=== PATIENT | male | born 1945 | race Caucasian/White ===

== ENCOUNTER 2018-10-10 09:04 | Emergency (ER) | payer MEDICARE ==
[~2018-10-10] VITALS: Ht 170.2 cm; Wt 84.4 kg
[~2018-10-10 09:04] MED LIST: DOXAZOSIN MESYLA8 MG PO; FINASTERIDE5 MG PO; GEMFIBROZIL600 MG PO; GLIPIZIDE5 MG PO; LISINOPRIL30 MG PO; METOPROLOL SUCC50 MG PO; NITROFURANTOIN100 MG PO; PANTOPRAZOLE SO40 MG PO; SUCRALFATE1 GM PO; SULFAMETHOXAZO1 EAC1 PO; TAMSULOSIN HCL0.4 MG PO; ULTRACET TABLE1 EACH PO
[2018-10-10] MEDS ORDERED: ATORVASTATIN CA10 MG PO (09:32)
[2018-10-10] MEDS ORDERED: AREDS2 PO (09:32)
[2018-10-10] MEDS ORDERED: XARELTO 15 MG PO (09:32)
[2018-10-10] MEDS ORDERED: METOPROLOL TART25 MG PO (09:32)
[2018-10-10 09:36] LABS: BILIRUBIN,URINE NEGATIVE (NEGATIVE); CLARITY,URINE CLEAR (CLEAR); COLOR,URINE YELLOW (YELLOW); KETONES,URINE NEGATIVE (NEGATIVE); LEUKOCYTE ESTERASE ,URINE NEGATIVE (NEGATIVE); NITRITE,URINE NEGATIVE (NEGATIVE); PROTEIN,URINE DIPSTICK NEGATIVE (NEGATIVE); URINE UROBILINOGEN 0.2 mg/dL (0.2 - 1)
--- NOTE | 2018-10-10 09:39 | NUR ---
PATIENT IN FROM HOME WITH COMPLAINTS OF BEING UNABLE TO URINATE - STATES LAST TIME WAS SOME TIME YESTERDAY. BLADDER SCANNER SHOWED >500 CC IN BLADDER. 16 MOHAWK CATHETER INSERTED PER MD ORDER, APPROX 750 CC OF URINE RETURN OBTAINED IMMEDIATELY. SAMPLE OBTAINED AND SENT TO LAB
[2018-10-10 10:06] LABS: EPITHELIAL CELLS,URINE RARE /LPF
[2018-10-24] MEDS ORDERED: LEVAQUIN500 MG PO (07:19)
[2018-10-24] MEDS ORDERED: LOPRESSOR25 MG PO (07:43)
== END 2018-10-10 11:31 | disposition home or self-care (01) ==
LOC: ER 09:06
DX: R33.9 Retention of urine, unspecified (principal); N40.1 Benign prostatic hyperplasia with lower urinary tract symptoms; I10 Essential (primary) hypertension; E11.9 Type 2 diabetes mellitus without complications; I48.91 Unspecified atrial fibrillation; K21.9 Gastro-esophageal reflux disease without esophagitis
CPT/HCPCS: 51700; 81001; 87086; 99283

== ENCOUNTER 2018-10-19 02:16 | Inpatient (IN) | payer MEDICARE ==
[~2018-10-19] VITALS: Ht 170.2 cm; Wt 84.4 kg
[2018-10-19] VITALS (9 sets, daily range): BP systolic 113–147; BP diastolic 57–80
[~2018-10-19 02:16] MED LIST changes: +AREDS2 PO; +ATORVASTATIN CA10 MG PO; +METOPROLOL TART25 MG PO; +XARELTO 15 MG PO
[2018-10-19] MEDS ORDERED: ACETAMINOPHEN 1000 MG/100 ML IV STA (02:24)
[2018-10-19] MEDS ORDERED: SODIUM CHLORIDE 0.9% 1000ML 1,000 ML IV STA ×2 (02:24)
[2018-10-19] MEDS ORDERED: VANCOMYCIN 1GM/NS 250 ML 250 ML IV STA (02:24)
[2018-10-19] MEDS ORDERED: CEFEPIME HCL 1 GM VIAL IV STA (02:24)
[2018-10-19 02:37] LABS: BASOPHILS % 0.3 % (0.0-1.0); EOSINOPHILS # (AUTO) 0.2 (0.0-0.4); EOSINOPHILS % 2.9 % (0.0-6.0); HEMATOCRIT 37.7 % (38.2-49.6); HEMOGLOBIN 12.2 g/dL (14.0-18.0); LYMPHOCYTES # (AUTO) 0.6 (1.0-3.2); LYMPHOCYTES % 7.3 % (18.0-39.1); MEAN CORPUSCULAR HEMOGLOBIN 28.9 pg (28-32); MEAN CORPUSCULAR HGB CONC 32.4 g/dL (31-35); MEAN CORPUSCULAR VOLUME 89.3 fL (81-99); MONOCYTES # (AUTO) 0.2 (0.2-0.8); MONOCYTES % 2.3 % (4.4-11.3); NEUTROPHILS # (AUTO) 6.8 (2.1-6.9); NEUTROPHILS % 86.6 % (38.7-80.0); PLATELET COUNT 160 x10e3/uL (140-360); RED BLOOD COUNT 4.22 x10e6/uL (4.3-5.7); RED CELL DISTRIBUTION WIDTH 15.8 % (11.7-14.4)
[2018-10-19 02:58] LABS: ALBUMIN 3.6 g/dL (3.5-5.0); ALBUMIN/GLOBULIN RATIO 0.9 (0.8-2.0); ANION GAP 19.1 mmol/L (8-16); CALCIUM 9.2 mg/dL (8.4-10.2); CREATININE, SERUM 2.46 mg/dL (0.72-1.25)
[2018-10-19] MEDS: AZTREONAM 1 GM/NS 50 ML 50 ML IV SCH ×2 (02:58→14:26)
[2018-10-19] MEDS ORDERED: MEROPENEM 1GM 0 ML IV ONE (02:58)
--- NOTE | 2018-10-19 03:00 | NUR ---
irrigated ellison with 500cc ns using sterile technique. changed ellison bag to new sterile bag, placed to gravity, then obtained sample for UA from port after draining for approx 10 minutes. pt tolerated well. during eval and ellison irrigation, spouse relates she has been cleaning ellison bag internally each day by boiling water, disconnecting ellison bag tubing and then pouring down tubing. advised not pour water into tubing in the future. verbalized understanding.
[2018-10-19 03:01] LABS: BILIRUBIN,URINE NEGATIVE (NEGATIVE); CLARITY,URINE SL CLOUDY (CLEAR); COLOR,URINE RED (YELLOW); KETONES,URINE NEGATIVE (NEGATIVE); LEUKOCYTE ESTERASE ,URINE NEGATIVE (NEGATIVE); NITRITE,URINE NEGATIVE (NEGATIVE); PROTEIN,URINE DIPSTICK 2+ (NEGATIVE); URINE UROBILINOGEN 0.2 mg/dL (0.2 - 1)
[2018-10-19 03:02] LABS: POTASSIUM 5.1 mmol/L (3.5-5.1)
[2018-10-19 03:03] LABS: RBC,URINE >50 /HPF (0-5); WBC,URINE (MAN) 0-5 /HPF (0-5)
--- NOTE | 2018-10-19 03:45 | Diagnostic Imaging Report ---
Examination: Single AP view of the chest. COMPARISON: None. INDICATION: Sepsis DISCUSSION: Lines/tubes: None. Lungs: The lungs are well inflated and clear. No pneumonia or pulmonary edema. Pleura: No pleural effusion or pneumothorax. Heart and mediastinum: The heart and the mediastinum are unremarkable. Bones and soft tissues: Remote right-sided rib fractures. IMPRESSION: 1. No acute cardiopulmonary abnormalities. Signed by: Dr. Reese Wasserman M.D. on 10/19/2018 3:42 AM
[2018-10-19] MEDS ORDERED: FLOMAX0.4 MG PO (04:19)
[2018-10-19] MEDS ORDERED: GLIPIZIDE ER5 MG PO (04:19)
--- NOTE | 2018-10-19 05:19 | Diagnostic Imaging Report ---
EXAMINATION: CT of the abdomen and pelvis without contrast. TECHNIQUE: Helical CT images of the abdomen and pelvis were performed from the lung bases to the lesser trochanters. No intravenous contrast was given per renal stone protocol. Coronal and sagittal reformatted images were obtained.Dose modulation, iterative reconstruction, and/or weight based adjustment of the mA/kV was utilized to reduce the radiation dose to as low as reasonably achievable. COMPARISON: None. CLINICAL HISTORY:Fever, hematuria DISCUSSION: ABSENCE OF INTRAVENOUS CONTRAST DECREASES SENSITIVITY FOR DETECTION OF FOCAL LESIONS AND VASCULAR PATHOLOGY. ABDOMEN/PELVIS: LOWER THORAX: Unremarkable. HEPATOBILIARY:No focal hepatic lesions. No biliary ductal dilation. The gallbladder is normal. SPLEEN: No splenomegaly. PANCREAS: No focal masses or ductal dilatation. ADRENALS: No adrenal nodules. KIDNEYS/URETERS: Atrophy of the right kidney. Bilateral perinephric stranding. PELVIC ORGANS/BLADDER: The bladder is collapsed. Paula catheter. Prostate severely enlarged measuring 7.5 cm transverse dimension PERITONEUM/RETROPERITONEUM: No free air or fluid. LYMPH NODES: No intra-abdominal,retroperitoneal, pelvic or inguinal lymphadenopathy. VESSELS: Limited evaluation. GI TRACT: No distention or wall thickening. BONES AND SOFT TISSUES: No bony destructive lesions. No soft tissue abnormalities. IMPRESSION: No nephrolithiasis. Decompressed bladder with Paula catheter secondary to prostate hypertrophy. Signed by: Dr. Reese Wasserman M.D. on 10/19/2018 5:16 AM
--- OUTSIDE RECORDS SUMMARY | 2018-10-19 05:52 | XMS REPORT ---
[facility] Address Unknown Phone Unavailable Care Team Providers Care Management Trainee Marketing Name Role Phone Kayla GRUBBS Unavailable Unavailable Problems This patient has no known problems. Allergies, Adverse Reactions, Alerts This patient has no known allergies or adverse reactions. Medications This patient has no known medications. Results Test Description Test Time Test Comments Text Results Atomic Results Result Comments CT ABDOMEN/PELVIS WO 2018-10-19 05:13:00 [facility] [address] [place] [address] Patient Name: JOSEPHINE WYATT MR #: [id number] : 1945 Age/Sex: 73/M Req #: [id number] Adm Physician: Ordered by: HUNTER GRUBBS MD Report #: [id number] Location: ER Room/Bed: Procedure: [id number] CT/CT ABDOMEN/PELVIS WO Exam Date: 10/19/18 Exam Time: 0350 REPORT STATUS: Signed EXAMINATION: CT of the abdomen and pelvis without contrast. TECHNIQUE: Helical CT images of the abdomen and pelvis were performed from the lung bases to the lesser trochanters. No intravenous contrast was given per renal stone protocol. Coronal and sagittal reformatted images were obtained.Dose modulation, iterative reconstruction, and/or weight based adjustment of the mA/kV was utilized to reduce the radiation dose to as low as reasonably achievable. COMPARISON: None. CLINICAL HISTORY:Fever, hematuria DISCUSSION: ABSENCE OF INTRAVENOUS CONTRAST DECREASES SENSITIVITY FOR DETECTION OF FOCAL LESIONS AND VASCULAR PATHOLOGY. ABDOMEN/PELVIS: LOWER THORAX: Unremarkable. HEPATOBILIARY:No focal hepatic lesions. No biliary ductal dilation. The gallbladder is normal. SPLEEN: No splenomegaly. PANCREAS: No focal masses or ductal dilatation. ADRENALS: No adrenal nodules. KIDNEYS/URETERS: Atrophy of the right kidney. Bilateral perinephric stranding. PELVIC ORGANS/BLADDER: The bladder is collapsed. Paula catheter. Prostate severely enlarged measuring 7.5 cm transverse dimension PERITONEUM/RETROPERITONEUM: No free air or fluid. LYMPH NODES: No intra-abdominal,retroperitoneal, pelvic or inguinal lymphadenopathy. VESSELS: Limited evaluation. GI TRACT: No distention or wall thickening. BONES AND SOFT TISSUES: No bony destructive lesions. N o soft tissue abnormalities. IMPRESSION: No nephrolithiasis. Decompressed bladder with Paula catheter secondary to prostate hypertrophy. Signed by: Dr. Renetta Tolliver M.D. on 10/19/2018 5:16 AM Dictated By: RENETTA TOLLIVER MD 5 Transcribed By: HAILE on 10/19/18515 COPY TO: HUNTER GRUBBS MD CHEST SINGLE (PORTABLE) 2018-10-19 03:41:00 [place] [id number] Patient Name: JOSEPHINE WYATT MR #: [id number] : 1945 Age/Sex: 73/M Req #: [id number] Adm Physician: Ordered by: HUNTER GRUBBS MD Report #: [id number] Location: ER Room/Bed: Procedure: [id number] DX/CHEST SINGLE (PORTABLE) Exam Date: 10/19/18 Exam Time: 0248 REPORT STATUS: Signed Examination: Single AP view of the chest. COMPARISON: None. INDICATION: Sepsis DISCUSSION: Lines/tubes: None. Lungs: The lungs are well inflated and clear. No pneumonia or pulmonary edema. Pleura: No pleural effusion or pneumothorax. Heart and mediastinum: The heart and the mediastinum are unremarkable. Bones and soft tissues: Remote right-sided rib fractures. IMPRESSION: 1. No acute cardiopulmonary abnormalities. Signed by: Dr. Renetta Tolliver M.D. on 10/19/2018 3:42 AM Dictated By: RENETTA TOLLIVER MD 1 Transcribed By: HAILE on 10/19/18341 COPY TO: HUNTER GRUBBS MD
--- NOTE | 2018-10-19 07:05 | NUR ---
RCD PT AT BED PT IS ALERT AND ORIENTED PT RESTING ON BED NO SIGNS OF ANY DISTRESS NOTED IV PATENT MAURER DRAINING BY GRAVITY BLOODY URINE FAMILY AT BED SIDE BED LOW AND LOCKED CALL LIGHT IN REACH
--- NOTE | 2018-10-19 07:30 | NUR ---
refused blood sugar checking she said he is not diabetic
--- NOTE | 2018-10-19 10:00 | NUR ---
PAGED DR LINARES AND TALKED REGARDING RENEWAL OF HOME MEDS HE SAID HE COMING TO SEE THE PT AND RENEW THE MEDICATIONS
--- NOTE | 2018-10-19 13:44 | NUR ---
H&P cc: FEVER/CHILLS HPI: 73yoM, PCP , presented to ED on 10/10 for urinary retention, ellison placed and asked to f/u with urology outpt. Pt developed hematuria at home few days, then fever/chills, so came back; admitted. 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
[2018-10-19] MEDS: SODIUM CHLORIDE 0.9% 1000ML 1,000 ML IV SCH (13:45)
--- NOTE | 2018-10-19 14:30 | NUR ---
PAGED DR LINARES AND NOTIFY THE BLOOD CULTURE PRELIMINARY REPORT ASKED WHAT KIND OF ANTIBIOTIC GETTING OK HE WILL SEE THE PT
--- NOTE | 2018-10-19 14:57 | Consultation ---
DATE OF CONSULTATION: 10/19/2018 Urology consultation CHIEF COMPLAINT/REASON FOR CONSULTATION: Gross hematuria. HISTORY OF PRESENT ILLNESS: Mr. Garcia is a 73-year-old male, patient of Dr. Codie Ro, who has been noncompliant. The patient has not been seen for quite some time. He presented to the emergency room last week with urinary retention. Subsequent to Paula catheter placement, has had gross hematuria. PAST MEDICAL HISTORY: Atrial fibrillation, rapid ventricular response, BPH status post TURP, appendicitis status post appendectomy, hypertension, and chronic renal insufficiency. MEDICATIONS: Please see MAR. ALLERGIES: PENICILLIN, LISINOPRIL. SOCIAL HISTORY: Denied smoking or drinking. FAMILY HISTORY: Denied urologic stones or malignancies. REVIEW OF SYSTEMS: Noncontributory. Noncontributory other than problems mentioned above for 12 organ systems PHYSICAL EXAMINATION: GENERAL: An elderly male, lying currently, in no distress. VITAL SIGNS: Temperature 101.2, pulse 97, respirations 18, and blood pressure 119/57. HEENT: Sclerae anicteric. NECK: Supple. BACK: Without costovertebral angle. ABDOMEN: Soft, nontender, and nondistended. No palpable mass. No palpable hernias. No palpable adenopathy. : Normal male. Paula catheter draining bloody urine. EXTREMITIES: No edema. Moves extremities. PSYCH: Alert and appropriate. SKIN: Intact, normal color. PERTINENT LABORATORY DATA: Hemoglobin 12, hematocrit 37, platelet count 162,000, and white count 7850. Sodium 138, potassium 5.1, chloride 108, bicarb 16, BUN 35, creatinine 2.46, and glucose 110. Lactic acid 21. Urinalysis, greater than 50 red, 0-5 whites, 2+ protein. CT scan revealing right renal atrophy, 7.5 cm prostate. IMPRESSION: 1. Gross hematuria. 2. Acute on chronic renal failure. 3. Septic shock. 4. Urinary tract infection. 5. Benign prostatic hypertrophy. 6. Proteinuria. 7. Right renal atrophy. 8. Anemia. PLAN: Irrigate the Paula catheter p.r.n. Supportive care for the septic shock. Thank you for allowing me to participate in care of the patient. We will be happy to follow along with you. MD ZECHARIAH Summers/MODL /[id number] cc: Nitin Giordano MD
[2018-10-19] MEDS: METOPROLOL TARTRATE 25 MG TAB PO SCH ×2 (15:00→20:14)
[2018-10-19] MEDS: GEMFIBROZIL 600 MG TAB PO SCH (16:05)
[2018-10-19] MEDS: ACETAMINOPHEN 325 MG TAB PO PRN (16:19)
--- NOTE | 2018-10-19 18:39 | NUR ---
PT RESTING ON BED BED SIDE REPORT GIVEN TO ONCOMING NURSE
[2018-10-19] MEDS ORDERED: IBUPROFEN 600 MG TAB PO PRN (20:00)
[2018-10-19] MEDS: DOXAZOSIN MESYLATE 2 MG TAB PO SCH (20:14)
[2018-10-19] MEDS: ATORVASTATIN 10 MG TAB PO SCH (20:14)
[2018-10-20] VITALS (7 sets, daily range): BP systolic 112–158; BP diastolic 61–80
[2018-10-20] MEDS: AZTREONAM 1 GM/NS 50 ML 50 ML IV SCH ×2 (01:41→13:47)
[2018-10-20 05:49] LABS: BASOPHILS % 0.2 % (0.0-1.0); EOSINOPHILS % 0.1 % (0.0-6.0); HEMATOCRIT 34.7 % (38.2-49.6); HEMOGLOBIN 10.5 g/dL (14.0-18.0); LYMPHOCYTES # (AUTO) 0.3 (1.0-3.2); LYMPHOCYTES % 3.4 % (18.0-39.1); MEAN CORPUSCULAR HEMOGLOBIN 28.5 pg (28-32); MEAN CORPUSCULAR HGB CONC 30.3 g/dL (31-35); MEAN CORPUSCULAR VOLUME 94.3 fL (81-99); MONOCYTES # (AUTO) 0.4 (0.2-0.8); MONOCYTES % 3.7 % (4.4-11.3); NEUTROPHILS # (AUTO) 8.9 (2.1-6.9); PLATELET COUNT 109 x10e3/uL (140-360); RED BLOOD COUNT 3.68 x10e6/uL (4.3-5.7); RED CELL DISTRIBUTION WIDTH 16.4 % (11.7-14.4)
[2018-10-20 06:13] LABS: ALBUMIN 2.8 g/dL (3.5-5.0); ALBUMIN/GLOBULIN RATIO 0.8 (0.8-2.0); CALCIUM 8.4 mg/dL (8.4-10.2); CREATININE, SERUM 2.39 mg/dL (0.72-1.25)
--- NOTE | 2018-10-20 08:05 | NUR ---
IM- progress note O/N no events ROS: no N/V/D/KRAFT/cp/sob/skin rash/vision changes/back pain/leg pain v/s revd PE tired appearing anicteric ns1s2 mod bs soft nt nd ellison with bloody urine no e skin dry n. 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
[2018-10-20] MEDS: TAMSULOSIN HCL 0.4 MG CAP PO SCH (08:28)
[2018-10-20] MEDS: GEMFIBROZIL 600 MG TAB PO SCH ×2 (08:28→15:51)
[2018-10-20] MEDS: PANTOPRAZOLE SOD 40 MG TABEC PO SCH (08:29)
[2018-10-20] MEDS: METOPROLOL TARTRATE 25 MG TAB PO SCH ×3 (08:29→21:50)
[2018-10-20] MEDS: SODIUM CHLORIDE 0.9% 1000ML 1,000 ML IV SCH (11:10)
[2018-10-20] MEDS: ACETAMINOPHEN 325 MG TAB PO PRN ×2 (11:20→23:16)
--- NOTE | 2018-10-20 16:23 | NUR ---
O aware of noon T101.5. No new orders at this time.
--- NOTE | 2018-10-20 18:49 | NUR ---
Resting in bed, side rails upx2, call light within reach. NO s/s of acute distress noted. Report to be given to oncoming nurse.
--- NOTE | 2018-10-20 18:53 | NUR ---
Received report from previous nurse. Call light within reach. Patient in bed.
[2018-10-20] MEDS: DOXAZOSIN MESYLATE 2 MG TAB PO SCH (21:50)
[2018-10-20] MEDS: ATORVASTATIN 10 MG TAB PO SCH (21:50)
[2018-10-21] VITALS (8 sets, daily range): BP systolic 122–162; BP diastolic 71–94
--- NOTE | 2018-10-21 00:20 | NUR ---
Helped patient get out of bed and when he got back into bed, he started wheezing. Called and talked to Dr. Herrera, he said to start Neb treatment q4h PRN.
[2018-10-21] MEDS: ALBUTEROL/IPRATROPIUM 3 ML NEB NEB PRN ×3 (01:30→23:45)
[2018-10-21] MEDS: AZTREONAM 1 GM/NS 50 ML 50 ML IV SCH (02:35)
--- NOTE | 2018-10-21 06:46 | NUR ---
IM- progress note O/N no events ROS: no N/V/D/KRAFT/cp/sob/skin rash/vision changes/back pain/leg pain v/s revd PE tired appearing anicteric ns1s2 mod bs soft nt nd ellison with bloody urine no e skin dry n. 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 Edward Herrera MD,PhD.
--- NOTE | 2018-10-21 07:00 | NUR ---
aware of blood culture and urine culture results
--- NOTE | 2018-10-21 07:14 | NUR ---
Gave report to oncoming nurse. Call light within reach. Patient in bed.
[2018-10-21 07:57] LABS: ANION GAP 13.8 mmol/L (8-16); CALCIUM 9.1 mg/dL (8.4-10.2); CREATININE, SERUM 2.34 mg/dL (0.72-1.25); POTASSIUM 4.8 mmol/L (3.5-5.1)
[2018-10-21] MEDS: PANTOPRAZOLE SOD 40 MG TABEC PO SCH (08:04)
[2018-10-21] MEDS: GEMFIBROZIL 600 MG TAB PO SCH ×2 (08:04→16:49)
[2018-10-21] MEDS: TAMSULOSIN HCL 0.4 MG CAP PO SCH (08:04)
[2018-10-21] MEDS: METOPROLOL TARTRATE 25 MG TAB PO SCH ×3 (08:04→22:21)
[2018-10-21] MEDS: LEVOFLOXACIN 500MG/D5W 100ML 100 ML IV SCH (08:04)
[2018-10-21] MEDS: SODIUM CHLORIDE 0.9% 1000ML 1,000 ML IV SCH (08:04)
[2018-10-21] MEDS: ACETAMINOPHEN 325 MG TAB PO PRN (08:05)
--- NOTE | 2018-10-21 18:53 | NUR ---
Received report from previous nurse. call light within reach. patient in bed. at bedside
--- NOTE | 2018-10-21 19:10 | NUR ---
Report given to oncoming nurse of patient's status. Resting in bed. No s/s of acute distress noted. at bedside
[2018-10-21] MEDS: DOXAZOSIN MESYLATE 2 MG TAB PO SCH (22:21)
[2018-10-21] MEDS: ATORVASTATIN 10 MG TAB PO SCH (22:21)
[2018-10-22] VITALS (8 sets, daily range): BP systolic 153–175; BP diastolic 77–88
[2018-10-22] MEDS: SODIUM CHLORIDE 0.9% 1000ML 1,000 ML IV SCH ×3 (03:45→20:17)
--- NOTE | 2018-10-22 07:00 | NUR ---
BEDSIDE SHIFT REPORT RECEIVED FROM THE SERVER PROGRAMMER RN. FAMILY AT BEDSIDE. PT DENIES NEEDS AT THIS TIME.
--- NOTE | 2018-10-22 07:20 | NUR ---
Gave report to oncoming nurse. Patient in bed. Call light within reach. at bedside
--- NOTE | 2018-10-22 07:59 | NUR ---
IM- progress note O/N no events ROS: no N/V/D/KRAFT/cp/sob/skin rash/vision changes/back pain/leg pain v/s revd PE tired appearing anicteric ns1s2 mod bs soft nt nd ellison with bloody urine no e skin dry n. 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 10/22 repeat blood cultures today. Edward Herrera MD,PhD.
[2018-10-22] MEDS: LEVOFLOXACIN 500MG/D5W 100ML 100 ML IV SCH (08:08)
[2018-10-22] MEDS: PANTOPRAZOLE SOD 40 MG TABEC PO SCH (08:08)
[2018-10-22] MEDS: METOPROLOL TARTRATE 25 MG TAB PO SCH ×3 (08:13→20:26)
[2018-10-22] MEDS: TAMSULOSIN HCL 0.4 MG CAP PO SCH (08:15)
[2018-10-22] MEDS: GEMFIBROZIL 600 MG TAB PO SCH ×2 (08:16→16:06)
--- NOTE | 2018-10-22 13:15 | NUR ---
MAURER CARE EDUCATION GIVEN TO THE PT. PT FAMILY AT BEDSIDE. EDUCATION MATERIAL GIVEN TO THE PT FAMILY. DEMONSTRATED THE PROCEDURE. VERBALIZED UNDERSTANDING.
--- NOTE | 2018-10-22 19:00 | NUR ---
BEDSIDE SHIFT REPORT GIVEN TO THE SURFACE WATER TECHNICIAN RN. PT DENIED FURTHER NEEDS.
[2018-10-22] MEDS: ATORVASTATIN 10 MG TAB PO SCH (20:26)
[2018-10-22] MEDS: DOXAZOSIN MESYLATE 2 MG TAB PO SCH (20:26)
[2018-10-23] VITALS (7 sets, daily range): BP systolic 147–163; BP diastolic 72–87
--- NOTE | 2018-10-23 06:09 | NUR ---
IM- progress note O/N no events ROS: no N/V/D/KRAFT/cp/sob/skin rash/vision changes/back pain/leg pain v/s revd PE tired appearing anicteric ns1s2 mod bs soft nt nd ellison with bloody urine no e skin dry n. 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 10/22 repeat blood cultures today. 10/23 f/u blood cx. Pt may have CKD3/4. Edward Herrera MD,PhD.
--- NOTE | 2018-10-23 07:00 | NUR ---
BEDSIDE REPORT FROM NIGHT RN. PT DENIES NEEDS AT THIS TIME.
[2018-10-23] MEDS: GEMFIBROZIL 600 MG TAB PO SCH ×2 (08:19→17:33)
[2018-10-23] MEDS: TAMSULOSIN HCL 0.4 MG CAP PO SCH (08:19)
[2018-10-23] MEDS: METOPROLOL TARTRATE 25 MG TAB PO SCH ×3 (08:19→22:12)
[2018-10-23] MEDS: PANTOPRAZOLE SOD 40 MG TABEC PO SCH (08:19)
[2018-10-23] MEDS: LEVOFLOXACIN 500MG/D5W 100ML 100 ML IV SCH (08:19)
[2018-10-23] MEDS: SODIUM CHLORIDE 0.9% 1000ML 1,000 ML IV SCH (13:35)
[2018-10-23] MEDS: DOXAZOSIN MESYLATE 2 MG TAB PO SCH (22:12)
[2018-10-23] MEDS: ATORVASTATIN 10 MG TAB PO SCH (22:12)
--- NOTE | 2018-10-24 01:46 | NUR ---
Dr. Javier baker for elevated bp
[2018-10-24 02:07] VITALS: BP 185/87
[2018-10-24 05:30] VITALS: BP 162/88
[2018-10-24] MEDS ORDERED: LABETALOL HCL 5 MG/ML 20ML VIAL IV PRN (06:45)
--- NOTE | 2018-10-24 07:18 | NUR ---
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 10/22 repeat blood cultures today. 10/23 f/u blood cx. Pt may have CKD3/4. repeat blood cx negative d/c home f/u pcp 1 week d/c.35mins stable Edward Herrera MD,PhD.
[2018-10-24] MEDS ORDERED: LEVAQUIN500 MG PO (07:19)
--- NOTE | 2018-10-24 07:20 | NUR ---
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 10/22 repeat blood cultures today. 10/23 f/u blood cx. Pt may have CKD3/4. repeat blood cx negative d/c home f/u pcp 1 week and Urology 1 week; Home on levaquin for 11 more days; d/c.35mins stable Edward Herrera MD,PhD.
--- NOTE | 2018-10-24 07:26 | NUR ---
Patient endorsed to next shift for continuity of care.
[2018-10-24] MEDS ORDERED: LOPRESSOR25 MG PO (07:43)
--- NOTE | 2018-10-24 07:44 | NUR ---
IMM letter delivered and explained to pt and at bedside. They verbalized understanding. Pt's Ivelisse Garcia signed letter. Signed copy placed in chart. Copy to pt's .
[2018-10-24 08:00] VITALS: BP 149/85
--- NOTE | 2018-10-24 08:00 | NUR ---
Pt received in bed at this time. Pt is able to verbalize needs. Denies any pain at this time. Paula in place and draining light yellow urine. Family at the bedside.
[2018-10-24 08:03] VITALS: BP 149/85
[2018-10-24] MEDS ORDERED: METOPROLOL TARTRATE 25 MG TAB PO SCH (09:00)
[2018-10-24] MEDS: TAMSULOSIN HCL 0.4 MG CAP PO SCH (09:26)
[2018-10-24] MEDS: LEVOFLOXACIN 500MG/D5W 100ML 100 ML IV SCH (09:26)
[2018-10-24] MEDS: GEMFIBROZIL 600 MG TAB PO SCH (09:26)
[2018-10-24] MEDS: PANTOPRAZOLE SOD 40 MG TABEC PO SCH (09:26)
[2018-10-24 11:46] VITALS: BP 159/98
--- NOTE | 2018-10-24 12:38 | NUR ---
CM SPOKE TO PATIENT AND PATIENT AT BEDSIDE REGARDING ROLLING WALKER FOR DISCHARGE. PATIENT IN BATHROOM AND DELEGATES HIS TO SIGN DURAMEDIC FORM. DURAMEDIC FORM SIGNED BY PATIENT AND WALKER SET UP AND PLACED AT BEDSIDE. PATIENT CLEARED BY CM AND READY FOR DC. DURAMEDIC FORM SIGNED BY AND STAPLED TO FACESHEET AND ORDER. FORM PENDING SIGNATURE BY MD. FORM PLACED ON CHART.
--- NOTE | 2018-10-24 12:50 | NUR ---
Pt discharged at this time. Prescriptions given to . Education given regarding leg bag and pt and verbalize understanding of how leg bag works. Pt went home with walker. Denies any pain at this time.
== END 2018-10-24 12:50 | disposition home or self-care (01) | DRG 872 ==
LOC: ER 02:16 → ERHOLD 05:49 → MED/SURG2 06:05
PROVIDERS: ADMIT Internal Medicine; ATTEND Internal Medicine
DX: A41.9 Sepsis, unspecified organism (principal); N39.0 Urinary tract infection, site not specified; E87.2 Acidosis; R31.9 Hematuria, unspecified; N40.1 Benign prostatic hyperplasia with lower urinary tract symptoms; R33.8 Other retention of urine; Z87.891 Personal history of nicotine dependence; E11.22 Type 2 diabetes mellitus with diabetic chronic kidney disease; I12.9 Hypertensive chronic kidney disease with stage 1 through stage 4 chronic kidney disease, or unspecified chronic kidney disease; N18.2 Chronic kidney disease, stage 2 (mild); Z79.4 Long term (current) use of insulin; I48.0 Paroxysmal atrial fibrillation; Z79.01 Long term (current) use of anticoagulants
CPT/HCPCS: 36415; 71045; 74176; 80048; 80053; 80061; 81001; 82948; 83036; 83605; 85025; 87040; 87071; 87086; 87186; 87205; 93005; 94640; 96365; 99284; J0692; J1956; J3370; J7030

== ENCOUNTER 2021-07-06 14:33 | Emergency (ER) | payer MEDICARE, OTHER ==
[~2021-07-06] VITALS: Ht 170.2 cm; Wt 75.3 kg
[~2021-07-06 14:33] MED LIST changes: +FLOMAX0.4 MG PO; +GLIPIZIDE ER5 MG PO; +LEVAQUIN500 MG PO; +LOPRESSOR25 MG PO
[2021-07-06] MEDS ORDERED: ACETAMINOPHEN 325 MG TAB PO ONE (15:00)
[2021-07-06] MEDS ORDERED: METHOCARBAMOL 750 MG TAB PO ONE (15:00)
[2021-07-06] MEDS ORDERED: METHOCARBAMOL750 MG PO (16:51)
== END 2021-07-06 17:13 | disposition home or self-care (01) ==
LOC: ER 14:56
DX: S32.010A Wedge compression fracture of first lumbar vertebra, initial encounter for closed fracture (principal); W01.0XXA Fall on same level from slipping, tripping and stumbling without subsequent striking against object, initial encounter; Y93.01 Activity, walking, marching and hiking; Y92.098 Other place in other non-institutional residence as the place of occurrence of the external cause; I10 Essential (primary) hypertension; E11.9 Type 2 diabetes mellitus without complications; E78.5 Hyperlipidemia, unspecified; I48.91 Unspecified atrial fibrillation; K21.9 Gastro-esophageal reflux disease without esophagitis
CPT/HCPCS: 72110; 99282

== ENCOUNTER 2022-08-08 05:30 | Inpatient (IN) | payer MEDICARE ==
[2022-08-01 10:58] LABS: BASOPHILS # (AUTO) 0.1 (0.0-0.1); BASOPHILS % 0.7 % (0.0-1.0); EOSINOPHILS # (AUTO) 0.3 (0.0-0.4); HEMATOCRIT 39.2 % (38.2-49.6); HEMOGLOBIN 12.4 g/dL (14.0-18.0); LYMPHOCYTES # (AUTO) 1.7 (1.0-3.2); LYMPHOCYTES % 20.4 % (18.0-39.1); MEAN CORPUSCULAR HEMOGLOBIN 29.4 pg (28-32); MEAN CORPUSCULAR HGB CONC 31.6 g/dL (31-35); MEAN CORPUSCULAR VOLUME 92.9 fL (81-99); MONOCYTES # (AUTO) 0.4 (0.2-0.8); MONOCYTES % 4.6 % (4.4-11.3); NEUTROPHILS # (AUTO) 5.8 (2.1-6.9); NEUTROPHILS % 70.7 % (38.7-80.0); PLATELET COUNT 203 x10e3/uL (140-360); RED BLOOD COUNT 4.22 x10e6/uL (4.3-5.7); RED CELL DISTRIBUTION WIDTH 15.5 % (11.7-14.4)
[2022-08-01 11:21] LABS: ANION GAP 17.3 mmol/L (8-16); BLOOD UREA NITROGEN 25 mg/dL (7-26); BUN/CREATININE RATIO 12 (6-25); CARBON DIOXIDE 18 mmol/L (22-29); CHLORIDE 109 mmol/L (98-107); CREATININE, SERUM 2.07 mg/dL (0.72-1.25); GLUCOSE 176 mg/dL (74-118); POTASSIUM 4.3 mmol/L (3.5-5.1); SODIUM 140 mmol/L (136-145)
[2022-08-08] VITALS (9 sets, daily range): BP systolic 105–160; BP diastolic 61–93
[~2022-08-08] VITALS: Ht 172.7 cm; Wt 79.4 kg
[~2022-08-08 05:30] MED LIST changes: +ASPIRIN81 MG PO; +CARVEDILOL12.5 MG PO; +ELIQUIS2.5 MG PO; +FUROSEMIDE40 MG PO; +MEMANTINE HCL10 MG PO; +METHOCARBAMOL750 MG PO; +QUETIAPINE FUMA25 MG PO
[2022-08-08] MEDS ORDERED: SODIUM CHLORIDE 0.9% 1000ML 1,000 ML ONE (05:46)
[2022-08-08] MEDS ORDERED: MEROPENEM 1 GM VIAL ONE (06:12)
[2022-08-08] MEDS ORDERED: GENTAMICIN 80MG/NS 100 ML 200 ML IV ONE (06:12)
[2022-08-08] MEDS ORDERED: IOPAMIDOL 370 MG/ML 100 ML INFUS..BTL INJ ONE (06:30)
[2022-08-08] MEDS ORDERED: ACETAMINOPHEN 1000 MG/100 ML 100 ML IV ONE (06:51)
[2022-08-08] MEDS ORDERED: ONDANSETRON HCL INJ 2MG/ML 2ML 2 MG/ML VIAL IV PRN ×2 (09:30→20:15)
[2022-08-08] MEDS ORDERED: PHENAZOPYRIDINE HCL 100 MG TAB PO PRN (09:30)
[2022-08-08 09:47] LABS: BASOPHILS # (AUTO) 0.1 (0.0-0.1); BASOPHILS % 0.8 % (0.0-1.0); EOSINOPHILS # (AUTO) 0.2 (0.0-0.4); EOSINOPHILS % 2.6 % (0.0-6.0); HEMATOCRIT 37.2 % (38.2-49.6); HEMOGLOBIN 10.9 g/dL (14.0-18.0); LYMPHOCYTES # (AUTO) 1.8 (1.0-3.2); LYMPHOCYTES % 22.5 % (18.0-39.1); MEAN CORPUSCULAR HEMOGLOBIN 29.4 pg (28-32); MEAN CORPUSCULAR HGB CONC 29.3 g/dL (31-35); MEAN CORPUSCULAR VOLUME 100.3 fL (81-99); MONOCYTES # (AUTO) 0.6 (0.2-0.8); MONOCYTES % 7.8 % (4.4-11.3); NEUTROPHILS # (AUTO) 5.3 (2.1-6.9); NEUTROPHILS % 65.8 % (38.7-80.0); PLATELET COUNT 162 x10e3/uL (140-360); RED BLOOD COUNT 3.71 x10e6/uL (4.3-5.7); RED CELL DISTRIBUTION WIDTH 15.6 % (11.7-14.4)
[2022-08-08] MEDS: FENTANYL CITRATE/PF 100MCG/2 ML INJ ONE ×4 (10:00→10:15)
[2022-08-08] MEDS ORDERED: ACETAMINOPHEN/CODEINE 300MG - 30MG TAB ONE (11:04)
[2022-08-08] MEDS ORDERED: PHENAZOPYRIDINE HCL 100 MG TAB ONE (11:05)
[2022-08-08 11:28] LABS: ANION GAP 13.7 mmol/L (8-16); CREATININE, SERUM 1.88 mg/dL (0.72-1.25); POTASSIUM 4.7 mmol/L (3.5-5.1)
[2022-08-08] MEDS: HYDRALAZINE HCL 20 MG/ML VIAL ONE ×2 (12:07→13:49)
[2022-08-08] MEDS ORDERED: ONDANSETRON HCL INJ 2MG/ML 2ML 2 MG/ML VIAL ONE (13:32)
[2022-08-08] MEDS ORDERED: POVIDONE IODINE 0.05% 0.05 % ML PO ONE (13:32)
[2022-08-08] MEDS ORDERED: EPHEDRINE SULFATE INJ 50 MG/ML VIAL ONE (13:32)
[2022-08-08] MEDS ORDERED: PROPOFOL IV EMULSION 10 MG/ML 20 ML VIAL ONE (13:32)
[2022-08-08] MEDS ORDERED: LIDOCAINE HCL 2% LOCAL INJ 5 ML SDV VIAL INJ ONE (13:32)
[2022-08-08] MEDS ORDERED: SEVOFLURANE INHAL SOLN 250 ML PEN BTL ONE (13:32)
[2022-08-08] MEDS ORDERED: FENTANYL CITRATE/PF 100MCG/2 ML INJ ONE (13:45)
[2022-08-08] MEDS: SODIUM CHLORIDE 0.9% 1000ML 1,000 ML IV SCH ×2 (14:16→23:44)
[2022-08-08] MEDS: DOCUSATE SODIUM 100 MG CAP PO SCH (17:16)
[2022-08-08] MEDS ORDERED: ACETAMINOPHEN 1000 MG/100 ML IV PRN (18:00)
[2022-08-08] MEDS ORDERED: DOCUSATE SODIUM 100 MG CAP PO PRN (20:15)
[2022-08-08] MEDS ORDERED: SIMETHICONE 80 MG CHEW PO PRN (20:15)
[2022-08-08] MEDS: TAMSULOSIN HCL 0.4 MG CAP PO SCH (22:05)
[2022-08-08] MEDS: ATORVASTATIN 20 MG TAB PO SCH (22:06)
[2022-08-09] VITALS (9 sets, daily range): BP systolic 105–141; BP diastolic 60–71
[2022-08-09] MEDS: DIPHENHYDRAMINE HCL 25 MG CAP PO PRN ×2 (01:21→20:22)
[2022-08-09 05:58] LABS: BASOPHILS % 0.1 % (0.0-1.0); EOSINOPHILS # (AUTO) 0.2 (0.0-0.4); EOSINOPHILS % 0.9 % (0.0-6.0); HEMATOCRIT 33.7 % (38.2-49.6); HEMOGLOBIN 10.3 g/dL (14.0-18.0); LYMPHOCYTES # (AUTO) 0.4 (1.0-3.2); LYMPHOCYTES % 1.8 % (18.0-39.1); MEAN CORPUSCULAR HEMOGLOBIN 29.2 pg (28-32); MEAN CORPUSCULAR HGB CONC 30.6 g/dL (31-35); MEAN CORPUSCULAR VOLUME 95.5 fL (81-99); MONOCYTES # (AUTO) 1.2 (0.2-0.8); MONOCYTES % 5.4 % (4.4-11.3); NEUTROPHILS # (AUTO) 19.8 (2.1-6.9); PLATELET COUNT 153 x10e3/uL (140-360); RED BLOOD COUNT 3.53 x10e6/uL (4.3-5.7); RED CELL DISTRIBUTION WIDTH 16.4 % (11.7-14.4)
[2022-08-09 06:28] LABS: CALCIUM 7.9 mg/dL (8.4-10.2); CREATININE, SERUM 2.33 mg/dL (0.72-1.25)
[2022-08-09 08:50] LABS: BAND NEUTROPHILS % (MANUAL) 9 %; LYMPHOCYTES % (MANUAL) 1 % (19-48); MONOCYTES % (MANUAL) 2 % (3.4-9.0); NEUTROPHILS % (MANUAL) 88 % (40-74); PLATELET ESTIMATE ADEQUATE; PLATELET MORPHOLOGY COMMENT NORMAL; RBC MORPHOLOGY COMMENT NORMAL
[2022-08-09] MEDS: DOCUSATE SODIUM 100 MG CAP PO SCH ×3 (09:00→16:46)
[2022-08-09] MEDS: MEMANTINE 10 MG TAB PO SCH ×2 (09:00→10:10)
[2022-08-09] MEDS: SODIUM CHLORIDE 0.9% 1000ML 1,000 ML IV SCH (14:48)
[2022-08-09 16:14] LABS: BASOPHILS % 0.2 % (0.0-1.0); EOSINOPHILS # (AUTO) 0.2 (0.0-0.4); EOSINOPHILS % 1.4 % (0.0-6.0); HEMATOCRIT 35.3 % (38.2-49.6); HEMOGLOBIN 10.6 g/dL (14.0-18.0); LYMPHOCYTES # (AUTO) 0.6 (1.0-3.2); LYMPHOCYTES % 3.7 % (18.0-39.1); MEAN CORPUSCULAR HEMOGLOBIN 28.7 pg (28-32); MEAN CORPUSCULAR VOLUME 95.7 fL (81-99); MONOCYTES # (AUTO) 0.9 (0.2-0.8); MONOCYTES % 5.1 % (4.4-11.3); NEUTROPHILS # (AUTO) 14.8 (2.1-6.9); NEUTROPHILS % 89.1 % (38.7-80.0); PLATELET COUNT 111 x10e3/uL (140-360); RED BLOOD COUNT 3.69 x10e6/uL (4.3-5.7); RED CELL DISTRIBUTION WIDTH 16.7 % (11.7-14.4)
[2022-08-09] MEDS: DEXTROSE IV SCH (16:42)
[2022-08-09] MEDS: SODIUM BICARBONATE IV SCH (16:42)
[2022-08-09] MEDS: SOD CHL IV SCH (16:42)
[2022-08-09] MEDS: ACETAMINOPHEN 325 MG TAB PO PRN (16:45)
[2022-08-09] MEDS: TAMSULOSIN HCL 0.4 MG CAP PO SCH (20:22)
[2022-08-09] MEDS: ATORVASTATIN 20 MG TAB PO SCH (20:22)
[2022-08-10 01:04] VITALS: BP 141/78
[2022-08-10] MEDS: SODIUM BICARBONATE IV SCH ×2 (03:31→14:00)
[2022-08-10] MEDS: SOD CHL IV SCH ×2 (03:31→14:00)
[2022-08-10] MEDS: DEXTROSE IV SCH ×2 (03:31→14:00)
[2022-08-10 04:39] VITALS: BP 146/89
[2022-08-10 05:01] LABS: BASOPHILS % 0.2 % (0.0-1.0); EOSINOPHILS # (AUTO) 0.4 (0.0-0.4); EOSINOPHILS % 3.4 % (0.0-6.0); HEMATOCRIT 31.3 % (38.2-49.6); HEMOGLOBIN 9.5 g/dL (14.0-18.0); LYMPHOCYTES # (AUTO) 0.4 (1.0-3.2); LYMPHOCYTES % 3.5 % (18.0-39.1); MEAN CORPUSCULAR HEMOGLOBIN 29.1 pg (28-32); MEAN CORPUSCULAR HGB CONC 30.4 g/dL (31-35); MONOCYTES # (AUTO) 0.4 (0.2-0.8); MONOCYTES % 3.2 % (4.4-11.3); NEUTROPHILS # (AUTO) 10.1 (2.1-6.9); NEUTROPHILS % 89.1 % (38.7-80.0); PLATELET COUNT 117 x10e3/uL (140-360); RED BLOOD COUNT 3.26 x10e6/uL (4.3-5.7); RED CELL DISTRIBUTION WIDTH 16.2 % (11.7-14.4)
[2022-08-10 05:18] LABS: ANION GAP 12.2 mmol/L (8-16); CALCIUM 7.6 mg/dL (8.4-10.2); CREATININE, SERUM 2.33 mg/dL (0.72-1.25); POTASSIUM 4.2 mmol/L (3.5-5.1)
[2022-08-10 08:00] VITALS: BP 114/62
[2022-08-10] MEDS: MEMANTINE 10 MG TAB PO SCH (08:59)
[2022-08-10] MEDS: DOCUSATE SODIUM 100 MG CAP PO SCH ×2 (09:00→18:01)
[2022-08-10 12:00] VITALS: BP 137/82
[2022-08-10 16:11] VITALS: BP 139/63
[2022-08-10 20:22] VITALS: BP 153/90
[2022-08-10] MEDS: ATORVASTATIN 20 MG TAB PO SCH (20:28)
[2022-08-10] MEDS: TAMSULOSIN HCL 0.4 MG CAP PO SCH (20:28)
[2022-08-11] VITALS (7 sets, daily range): BP systolic 132–157; BP diastolic 62–96
[2022-08-11] MEDS: DEXTROSE IV SCH ×3 (01:06→23:47)
[2022-08-11] MEDS: SOD CHL IV SCH ×3 (01:06→23:47)
[2022-08-11] MEDS: SODIUM BICARBONATE IV SCH ×3 (01:06→23:47)
[2022-08-11] MEDS: ACETAMINOPHEN/CODEINE 300MG - 30MG TAB PO PRN ×2 (01:44→13:19)
[2022-08-11 06:43] LABS: BASOPHILS % 0.1 % (0.0-1.0); EOSINOPHILS # (AUTO) 0.6 (0.0-0.4); EOSINOPHILS % 6.6 % (0.0-6.0); HEMATOCRIT 30.6 % (38.2-49.6); HEMOGLOBIN 9.7 g/dL (14.0-18.0); LYMPHOCYTES # (AUTO) 0.8 (1.0-3.2); LYMPHOCYTES % 9.6 % (18.0-39.1); MEAN CORPUSCULAR HEMOGLOBIN 29.4 pg (28-32); MEAN CORPUSCULAR HGB CONC 31.7 g/dL (31-35); MEAN CORPUSCULAR VOLUME 92.7 fL (81-99); MONOCYTES # (AUTO) 0.3 (0.2-0.8); MONOCYTES % 3.8 % (4.4-11.3); NEUTROPHILS # (AUTO) 6.7 (2.1-6.9); NEUTROPHILS % 79.4 % (38.7-80.0); PLATELET COUNT 131 x10e3/uL (140-360); RED CELL DISTRIBUTION WIDTH 15.7 % (11.7-14.4)
[2022-08-11 07:10] LABS: CALCIUM 7.8 mg/dL (8.4-10.2); CREATININE, SERUM 1.94 mg/dL (0.72-1.25)
[2022-08-11] MEDS: DOCUSATE SODIUM 100 MG CAP PO SCH ×2 (10:09→17:10)
[2022-08-11] MEDS: MEMANTINE 10 MG TAB PO SCH (10:09)
[2022-08-11] MEDS: ATORVASTATIN 20 MG TAB PO SCH (21:01)
[2022-08-11] MEDS: TAMSULOSIN HCL 0.4 MG CAP PO SCH (21:02)
[2022-08-12] VITALS (7 sets, daily range): BP systolic 140–167; BP diastolic 82–89
[2022-08-12 04:56] LABS: BASOPHILS % 0.2 % (0.0-1.0); EOSINOPHILS # (AUTO) 0.6 (0.0-0.4); EOSINOPHILS % 6.1 % (0.0-6.0); HEMATOCRIT 34.5 % (38.2-49.6); HEMOGLOBIN 10.2 g/dL (14.0-18.0); LYMPHOCYTES % 11.2 % (18.0-39.1); MEAN CORPUSCULAR HGB CONC 29.6 g/dL (31-35); MONOCYTES # (AUTO) 0.5 (0.2-0.8); MONOCYTES % 5.7 % (4.4-11.3); NEUTROPHILS # (AUTO) 6.9 (2.1-6.9); NEUTROPHILS % 76.4 % (38.7-80.0); PLATELET COUNT 113 x10e3/uL (140-360); RED BLOOD COUNT 3.52 x10e6/uL (4.3-5.7); RED CELL DISTRIBUTION WIDTH 15.4 % (11.7-14.4)
[2022-08-12 05:24] LABS: ANION GAP 13.3 mmol/L (8-16); CALCIUM 7.6 mg/dL (8.4-10.2); CREATININE, SERUM 1.73 mg/dL (0.72-1.25); POTASSIUM 4.3 mmol/L (3.5-5.1)
[2022-08-12] MEDS: ACETAMINOPHEN 325 MG TAB PO PRN ×2 (06:28→20:05)
[2022-08-12] MEDS: DOCUSATE SODIUM 100 MG CAP PO SCH ×2 (09:38→16:31)
[2022-08-12] MEDS: MEMANTINE 10 MG TAB PO SCH (09:38)
[2022-08-12] MEDS: ACETAMINOPHEN/CODEINE 300MG - 30MG TAB PO PRN (11:52)
[2022-08-12] MEDS: DEXTROSE IV SCH ×2 (16:28→20:06)
[2022-08-12] MEDS: SODIUM BICARBONATE IV SCH ×2 (16:28→20:06)
[2022-08-12] MEDS: SOD CHL IV SCH ×2 (16:28→20:06)
[2022-08-12] MEDS ORDERED: METOPROLOL TARTRATE INJ 1 MG/ML VIAL IV PRN (18:30)
[2022-08-12] MEDS: TAMSULOSIN HCL 0.4 MG CAP PO SCH (20:05)
[2022-08-12] MEDS: ATORVASTATIN 20 MG TAB PO SCH (20:06)
[2022-08-12] MEDS: METOPROLOL TARTRATE 25 MG TAB PO SCH (20:08)
[2022-08-13] VITALS (8 sets, daily range): BP systolic 150–186; BP diastolic 82–100
[2022-08-13] MEDS: ACETAMINOPHEN 325 MG TAB PO PRN (05:46)
[2022-08-13] MEDS ORDERED: SODIUM BICARBONATE 8.4% SYRING 100 ML ONE (08:30)
[2022-08-13] MEDS: SODIUM BICARBONATE IV SCH ×2 (08:57→20:48)
[2022-08-13] MEDS: SOD CHL IV SCH ×2 (08:57→20:48)
[2022-08-13] MEDS: DEXTROSE IV SCH ×2 (08:57→20:48)
[2022-08-13] MEDS: DOCUSATE SODIUM 100 MG CAP PO SCH ×2 (08:58→17:08)
[2022-08-13] MEDS: MEMANTINE 10 MG TAB PO SCH (08:58)
[2022-08-13] MEDS: METOPROLOL TARTRATE 25 MG TAB PO SCH (08:59)
[2022-08-13] MEDS: ACETAMINOPHEN/CODEINE 300MG - 30MG TAB PO PRN ×2 (10:56→21:15)
[2022-08-13] MEDS ORDERED: METOPROLOL TARTRATE 25 MG TAB PO ONE (11:45)
[2022-08-13] MEDS: TAMSULOSIN HCL 0.4 MG CAP PO SCH ×2 (20:48→21:39)
[2022-08-13] MEDS ORDERED: METOPROLOL TARTRATE 25 MG TAB PO SCH (21:00)
[2022-08-13] MEDS: ATORVASTATIN 20 MG TAB PO SCH (21:41)
[2022-08-14] VITALS (7 sets, daily range): BP systolic 146–176; BP diastolic 73–99
[2022-08-14] MEDS: ACETAMINOPHEN/CODEINE 300MG - 30MG TAB PO PRN ×3 (04:24→09:40)
[2022-08-14] MEDS: SOD CHL IV SCH ×3 (07:00→22:45)
[2022-08-14] MEDS: DEXTROSE IV SCH ×3 (07:00→22:45)
[2022-08-14] MEDS: SODIUM BICARBONATE IV SCH ×3 (07:00→22:45)
[2022-08-14 08:20] LABS: ANION GAP 12.1 mmol/L (8-16); CALCIUM 7.8 mg/dL (8.4-10.2); CREATININE, SERUM 1.62 mg/dL (0.72-1.25); POTASSIUM 4.1 mmol/L (3.5-5.1)
[2022-08-14] MEDS: MEMANTINE 10 MG TAB PO SCH (09:32)
[2022-08-14] MEDS: METOPROLOL TARTRATE 50 MG TAB PO SCH ×2 (09:32→22:46)
[2022-08-14] MEDS: DOCUSATE SODIUM 100 MG CAP PO SCH ×2 (09:32→17:38)
[2022-08-14] MEDS: ACETAMINOPHEN 325 MG TAB PO PRN (17:38)
[2022-08-14] MEDS: ATORVASTATIN 20 MG TAB PO SCH (22:47)
[2022-08-15] MEDS: ACETAMINOPHEN/CODEINE 300MG - 30MG TAB PO PRN ×2 (00:47→01:33)
[2022-08-15 01:08] VITALS: BP 118/93
[2022-08-15 04:50] VITALS: BP 158/94
[2022-08-15] MEDS: SOD CHL IV SCH ×2 (05:00→12:26)
[2022-08-15] MEDS: DEXTROSE IV SCH ×2 (05:00→12:26)
[2022-08-15] MEDS: SODIUM BICARBONATE IV SCH ×2 (05:00→12:26)
[2022-08-15 08:00] VITALS: BP 153/82
[2022-08-15] MEDS: MEMANTINE 10 MG TAB PO SCH (09:06)
[2022-08-15] MEDS: METOPROLOL TARTRATE 50 MG TAB PO SCH (09:06)
[2022-08-15] MEDS: DOCUSATE SODIUM 100 MG CAP PO SCH (09:07)
[2022-08-15 09:14] VITALS: BP 153/82
[2022-08-15] MEDS ORDERED: Docusate Sodium PO (09:33)
[2022-08-15] MEDS ORDERED: ONDANSETRON HCL 4 MG ORAL DISINTEGRATING TAB PO PRN (10:15)
[2022-08-15 11:52] VITALS: BP 152/77
[2022-08-15] MEDS: ACETAMINOPHEN 325 MG TAB PO PRN (12:24)
[2022-08-15] MEDS ORDERED: SODIUM BICARBONATE IV SCH (23:00)
[2022-08-15] MEDS ORDERED: SOD CHL IV SCH (23:00)
[2022-08-15] MEDS ORDERED: DEXTROSE IV SCH (23:00)
== END 2022-08-15 14:41 | disposition home or self-care (01) | DRG 713 ==
LOC: OR 05:30 → PACU V 09:29 → MED/SURG 13:24
PROVIDERS: ADMIT Internal Medicine; ATTEND Internal Medicine
PROC: BT141ZZ Fluoroscopy of Kidneys, Ureters and Bladder using Low Osmolar Contrast (ICD-10-PCS; 2022-08-08)
PROC: 0VB08ZZ Excision of Prostate, Via Natural or Artificial Opening Endoscopic (ICD-10-PCS; principal; 2022-08-08 07:22)
PROC: 0T788ZZ Dilation of Bilateral Ureters, Via Natural or Artificial Opening Endoscopic (ICD-10-PCS; 2022-08-08 07:22)
DX: N40.1 Benign prostatic hyperplasia with lower urinary tract symptoms (principal); E87.20 Acidosis, unspecified; N13.8 Other obstructive and reflux uropathy; N39.0 Urinary tract infection, site not specified; Z16.29 Resistance to other single specified antibiotic; B95.2 Enterococcus as the cause of diseases classified elsewhere; I48.91 Unspecified atrial fibrillation; E11.22 Type 2 diabetes mellitus with diabetic chronic kidney disease; N18.30 Chronic kidney disease, stage 3 unspecified; I12.9 Hypertensive chronic kidney disease with stage 1 through stage 4 chronic kidney disease, or unspecified chronic kidney disease; I48.0 Paroxysmal atrial fibrillation; F03.90 Unspecified dementia, unspecified severity, without behavioral disturbance, psychotic disturbance, mood disturbance, and anxiety; Z88.0 Allergy status to penicillin
CPT/HCPCS: 0223U; 36415; 71046; 74420; 80048; 80061; 82948; 83036; 83735; 85025; 87086; 87186; 88304; 88305; 93005; 94799; C1758; J1580; J2001; J2185; J2405; J7030; Q9967